=== PATIENT | male | born 1935 | race Caucasian/White ===

== ENCOUNTER → 2018-05-27 | Outpatient (CLI) | payer MEDICARE | END | disposition home or self-care (01) | LOC: PCVCCLINIC 14:16 | PROVIDERS: ATTEND Internal Medicine Cardiovascular Disease | DX: I25.810 Atherosclerosis of coronary artery bypass graft(s) without angina pectoris (principal); E78.00 Pure hypercholesterolemia, unspecified; I10 Essential (primary) hypertension; I77.9 Disorder of arteries and arterioles, unspecified; I45.10 Unspecified right bundle-branch block; Z79.82 Long term (current) use of aspirin | CPT/HCPCS: 80061; 93005; G0463 ==

== ENCOUNTER → 2018-06-07 | Outpatient (CLI) | payer MEDICARE ==
--- NOTE | 2018-06-07 15:18 | PCVCIMAG ---
EXAM: BILATERAL CAROTID DUPLEX INDICATION: Carotid Occlusive Disease. FINDINGS: Doppler Measurements (centimeters per second): RIGHT: Peak CCA-54, Peak ECA-74, Diastolic ICA-18, Peak ICA-57, ICA/CCA Ratio-1.1. LEFT: Peak CCA-59, Peak ECA-63, Diastolic ICA-22, Peak ICA-59, ICA/CCA Ratio-1.0. RIGHT CAROTID: The carotid bulb has mild plaque. The proximal internal carotid artery shows <40% stenosis. The common carotid artery shows no significant stenosis. The external carotid artery shows no significant stenosis. LEFT CAROTID: The carotid bulb has mild plaque. The proximal internal carotid artery shows <40% stenosis. The common carotid artery shows no significant stenosis. The external carotid artery shows no significant stenosis. Antegrade flow in both vertebral arteries. IMPRESSION: <40% stenosis of the right internal carotid artery with mild plaque. <40% stenosis of the left internal carotid artery with mild plaque. LOC:[place] [id number]
--- NOTE | 2018-06-07 16:58 | PCVCIMAG ---
APPROVED REPORT Study performed: 06/07/2018 15:23:47 Exam: Stress Echocardiogram Indication: CAD s/p CABG (2010), HPL, HTN Patient Location: Echo lab Stress Nurse: Emily Ch RN Status: routine Ht: 5 ft 10 in HR: 67 bpm BP: 120/70 mmHg Rhythm: NSR, RBBB Medical History Medical History: CAD s/p CABG Procedure The patient underwent an Exercise Stress Test using the Roland Protocol. Blood pressure, heart rate, and EKG were monitored. An Echocardiogram was performed by small electric engine technician in four stages in quad fashion. At peak stress, four selected images were obtained and placed side by side with resting images for comparison. Stress Test Details Stress Test: Exercise stress testing was performed using a Roland protocol. HR Resting HR: 67 bpmMax Heart Rate (APMHR): 138 bpm Max HR Achieved: 171 bpmTarget HR (85% APMHR): 117 bpm % of APMHR: 123 Recovery HR: 97 bpm HR response to stress: Normal HR response to stress BP Resting BP: 120/70 mmHg Max BP: 192/88 mmHg Recovery BP: 132/80 mmHg ECG Resting ECG: Sinus Rhythm, RBBB Stress ECG: Sinus Rhythm, RBBB Arrhythmia: Rare PVC's Recovery ECG: Sinus Rhythm, RBBB Clinical Reason for Termination: Maximal effort Exercise duration: 6 min 52 sec Highest Stage Achieved: Stage 3: 3.4 mph at 14% grade. Exercise capacity: 9.60 METs Overall Exercise Capacity for Age: Good Stress ECG Conclusion ECG: Non-ischemic Clinical: Non-ischemic Pre-Stress Echo The resting Echocardiogram showed normal left ventricular contractility with an estimated Ejection Fraction of about >55%. Normal wall motion in all segments on baseline images with the exception of discordant septal motion secondary to bypass surgery. Post-Stress Echo The stress Echocardiogram showed normal left ventricular contractility with an estimated Ejection Fraction of about 60-65%. Normal augmentation of wall motion in all segments on post stress imagee with the exception of discordant septal motion secondary to bypass surgery. Clinical No clinical or ECG evidence for ischemia. Conclusion Clinical Response: Non-ischemic Exercise Capacity: Average Stress ECG Response: Non-ischemic Stress Echo Images: Non-ischemic The left ventricle is normal in size and wall thickness in both the rest and stress images. Other Information Study Quality: Adequate <Conclusion> The left ventricle is normal in size and wall thickness in both the rest and stress images.
== END | disposition home or self-care (01) ==
LOC: PCVCIMAG 13:00
PROVIDERS: ATTEND Internal Medicine Cardiovascular Disease
DX: I65.23 Occlusion and stenosis of bilateral carotid arteries (principal); I10 Essential (primary) hypertension; I45.10 Unspecified right bundle-branch block
CPT/HCPCS: 93325; 93351; 93880

== ENCOUNTER → 2018-09-16 | Outpatient (CLI) | payer MEDICARE ==
--- NOTE | 2018-09-17 08:19 | PCVCIMAG ---
EXAM: BILATERAL LOWER EXTREMITY ARTERIAL DUPLEX INDICATION: Peripheral Arterial Disease. Leg pain. FINDINGS: Right Leg: Satisfactory arterial waveforms throughout the common/profunda/superficial femoral, popliteal, anterior tibial, peroneal, and posterior tibial arteries. No flow limiting stenosis seen. Left Leg: Satisfactory arterial waveforms throughout the common/profunda/superficial femoral, popliteal, anterior tibial, peroneal, and posterior tibial arteries. No flow limiting stenosis seen. IMPRESSION: No flow limiting stenosis in the right lower extremity. No flow limiting stenosis in the left lower extremity. LOC:[id number]
== END | disposition home or self-care (01) ==
LOC: PCVCIMAG 14:17
PROVIDERS: ATTEND Family Medicine
DX: Z13.6 Encounter for screening for cardiovascular disorders (principal); I73.9 Peripheral vascular disease, unspecified; E78.2 Mixed hyperlipidemia; R79.89 Other specified abnormal findings of blood chemistry; I25.10 Atherosclerotic heart disease of native coronary artery without angina pectoris; I10 Essential (primary) hypertension; Z95.1 Presence of aortocoronary bypass graft; Z87.891 Personal history of nicotine dependence
CPT/HCPCS: 93925; G0463

== ENCOUNTER → 2018-12-22 | Outpatient (CLI) | payer MEDICARE | END | disposition home or self-care (01) | LOC: PCVCCLINIC 10:56 | PROVIDERS: ATTEND Internal Medicine Cardiovascular Disease | DX: I25.10 Atherosclerotic heart disease of native coronary artery without angina pectoris (principal); I10 Essential (primary) hypertension; E78.2 Mixed hyperlipidemia; K21.9 Gastro-esophageal reflux disease without esophagitis; Z95.1 Presence of aortocoronary bypass graft; Z87.891 Personal history of nicotine dependence; Z79.82 Long term (current) use of aspirin | CPT/HCPCS: 36415; 80061; 93005; G0463 ==

== ENCOUNTER → 2019-04-27 | Outpatient (CLI) | payer MEDICARE ==
--- NOTE | 2019-04-27 14:08 | PCVCIMAG ---
APPROVED REPORT Study performed: 04/27/2019 08:23:22 EXAM: Comprehensive 2D, Doppler, and color-flow Echocardiogram Patient Location: Echo lab Status: routine BSA: 2.13 HR: 63 bpmBP: 152/76 mmHg Rhythm: RBBB Other Information Study Quality: Good Risk Factors: Cardiac Risk Factors: HTN Indications Murmur CAD Hypertension/HDD S/P CABG 2D Dimensions IVSd: 9.22 (7-11mm)LVOT Diam: 19.48 (18-24mm) LVDd: 49.07 mm PWd: 10.06 (7-11mm)Ascending Ao: 39.53 (22-36mm) LVDs: 32.09 (25-40mm) Left Atrium: 32.49 (27-40mm) Aortic Root: 31.54 mm LV Single Plane 4CH: 54.91 % LV Single Plane 2CH: 59.22 % Biplane EF: 60.0 % Volumes Left Atrial Volume (Systole) Single Plane 4CH: 70.69 mLSingle Plane 2CH: 74.64 mL Biplane LA Volume: 74.00 mLLA ESV Index: 35.00 mL/m2 Aortic Valve AoV Peak Anatoliy.: 1.19 m/s AO Peak Gr.: 5.65 mmHgLVOT Max P.92 mmHg LVOT Max V: 0.69 m/s JENNIFER Vmax: 1.74 cm2 AI Vmax: 3.18 m/s AI Pine: 1.00 m/s2 AI PHT: 924.73 ms Mitral Valve E/A Ratio: 0.6 MV Decel. Time: 329.19 ms MV E Max Anatoliy.: 0.50 m/s MV A Anatoliy.: 0.77 m/s IVRT: 72.66 ms TDI E/Lateral E': 8.33E/Medial E': 8.33 Medial E' Anatoliy.: 0.06 m/s Lateral E' Anatoliy.: 0.06 m/s Pulmonary Valve PV Peak Anatoliy.: 1.25 m/sPV Peak Gr.: 6.24 mmHg Pulmonary Vein P Vein S: 0.63 m/sP Vein A: 0.26 m/s P Vein D: 0.30 m/sP Vein A Dur.: 65.7 msec P Vein S/D Ratio: 2.10 Tricuspid Valve TR Peak Anatoliy.: 2.63 m/s TR Peak Gr.: 27.66 mmHg TV Vmax: 1.62 m/sPA Pressure: 35.00 mmHg Left Ventricle The left ventricle is normal size. There is normal LV segmental wall motion. There is normal left ventricular wall thickness. Left ventricular systolic function is normal. The left ventricular ejection fraction is within the normal range. LVEF is 60%. Grade I - abnormal relaxation pattern. Right Ventricle The right ventricle is normal size. The right ventricular systolic function is normal. Atria Left atrium is mildly dilated. The right atrium size is normal. Aortic Valve Aortic valve is trileaflet. Mild aortic valve sclerosis. Mild aortic regurgitation. There is no aortic valvular stenosis. Mitral Valve The mitral valve is normal in structure. There is no mitral valve regurgitation noted. No evidence of mitral valve stenosis. Tricuspid Valve The tricuspid valve is normal in structure. Mild tricuspid regurgitation. Mild pulmonary hypertension. Pulmonic Valve The pulmonary valve is normal in structure. There is no pulmonic valvular regurgitation. Great Vessels The aortic root is normal in size. 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 Aortic arch is normal in caliber. IVC is normal in size and collapses >50% with inspiration. Pericardium There is no pericardial effusion. There is no pleural effusion. <Conclusion> The left ventricle is normal size. LVEF is 60%. Grade I - abnormal relaxation pattern. The right ventricle is normal size. Left atrium is mildly dilated. Aortic valve is trileaflet. Mild aortic valve sclerosis. Mild aortic regurgitation. There is no mitral valve regurgitation noted. Mild tricuspid regurgitation. Mild pulmonary hypertension. The aortic root is normal in size. 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 Aortic arch is normal in caliber. There is no pericardial effusion.
== END | disposition home or self-care (01) ==
LOC: PCVCIMAG 08:12
PROVIDERS: ATTEND Internal Medicine Cardiovascular Disease
DX: I08.8 Other rheumatic multiple valve diseases (principal); I73.9 Peripheral vascular disease, unspecified; G47.19 Other hypersomnia; G47.33 Obstructive sleep apnea (adult) (pediatric); E78.2 Mixed hyperlipidemia; Z95.1 Presence of aortocoronary bypass graft; Z87.891 Personal history of nicotine dependence
CPT/HCPCS: 93306

== ENCOUNTER → 2019-09-20 | Outpatient (CLI) | payer MEDICARE | END | disposition home or self-care (01) | LOC: PCVCCLINIC 10:00 | PROVIDERS: ATTEND Internal Medicine Cardiovascular Disease | DX: I25.10 Atherosclerotic heart disease of native coronary artery without angina pectoris (principal); I45.10 Unspecified right bundle-branch block; R94.31 Abnormal electrocardiogram [ECG] [EKG]; E78.00 Pure hypercholesterolemia, unspecified; G47.33 Obstructive sleep apnea (adult) (pediatric); I65.23 Occlusion and stenosis of bilateral carotid arteries; E78.5 Hyperlipidemia, unspecified; Z95.1 Presence of aortocoronary bypass graft; Z82.49 Family history of ischemic heart disease and other diseases of the circulatory system; Z87.891 Personal history of nicotine dependence; Z79.82 Long term (current) use of aspirin; Z79.899 Other long term (current) drug therapy | CPT/HCPCS: 36415; 80061; 93005; G0463 ==